=== PATIENT | female | born 1995 | race Caucasian/White ===

== ENCOUNTER 2021-05-13 16:15 | Emergency (ER) | payer OTHER ==
[~2021-05-13 16:15] MED LIST: COLACE 100MG C100 MG PO; FERROUS SULFAT325 M2 PO; IBUPROFEN600 MG PO; LORTAB 5-325 M1 EACH PO; TYLENOL 325MG325 MG PO
[2021-05-13] MEDS ORDERED: DELSYM30 MG/5 ML PO (19:07)
[2021-05-13] MEDS ORDERED: FLONASE 0.05% N16 GM (19:07)
[2021-05-13] MEDS ORDERED: MEDROL DOSEPAK 24 MG PO (19:07)
[2021-05-13] MEDS ORDERED: PSEUDOEPHEDRINE60 MG PO (19:07)
== END 2021-05-13 19:15 | disposition home or self-care (01) ==
LOC: ER1 16:15
DX: J06.9 Acute upper respiratory infection, unspecified (principal); Z20.822 Contact with and (suspected) exposure to COVID-19; F17.210 Nicotine dependence, cigarettes, uncomplicated
CPT/HCPCS: 99283; U0002